=== PATIENT | female | born 1990 | race Caucasian/White ===

== ENCOUNTER → 2016-08-15 | Day surgery (SDC) | payer SELFPAY ==
[~2016-08-15] VITALS: Ht 149.9 cm; Wt 49.0 kg
[~2016-08-15] MED LIST: PERCOCET 5-3251 EACH PO
[2016-08-15 12:25] LABS: WHITE BLOOD COUNT 10.5 K/UL (4.5-11.0)
[2016-08-15 12:26] LABS: HEMOGLOBIN 13.8 gm/dl (12.3-15.3); RED BLOOD COUNT 4.72 M/UL (4.00-5.10)
[2016-08-15 12:39] LABS: BUN/CREATININE RATIO 30 (0-10)
== END | disposition home or self-care (01) ==
LOC: OR 08:15
PROVIDERS: Orthopaedic Surgery
PROC: 0PS904Z Reposition Right Clavicle with Internal Fixation Device, Open Approach (ICD-10-PCS; principal; 2016-08-15 13:15)
DX: S42.021A Displaced fracture of shaft of right clavicle, initial encounter for closed fracture (principal); V89.2XXA Person injured in unspecified motor-vehicle accident, traffic, initial encounter; Z79.1 Long term (current) use of non-steroidal anti-inflammatories (NSAID); Z79.891 Long term (current) use of opiate analgesic
CPT/HCPCS: 36415; 73000; 76000; 80048; 84703; 85027; C1713; J0690; J2250; J2795; J3010; J7030; J7120